=== PATIENT | female | born 1985 ===

== ENCOUNTER 2023-07-06 06:16 | Day surgery (SDC) | payer OTHER ==
[2023-07-06] MEDS ORDERED: CEFTRIAXONE SODIUM 2,000 MG VIAL ONE (09:55)
[2023-07-06] MEDS ORDERED: ENOXAPARIN SODIUM 40 MG/0.4 ML SYRINGE SUBCUTANEO ONE ×2 (09:55→14:15)
[2023-07-06] MEDS ORDERED: METRONIDAZOLE/SODIUM CHLORIDE 500 MG/100 ML PIGGYBACK IV ONE ×2 (10:00→14:15)
[2023-07-06] MEDS ORDERED: SUGAMMADEX SODIUM 200 MG/2 ML VIAL IV ONE ×2 (13:59→14:15)
[2023-07-06] MEDS ORDERED: CEFTRIAXONE SODIUM 2,000 MG VIAL IV ONE (14:15)
[2023-07-06] MEDS ORDERED: PERCOCET 5-3251 EACH PO (15:59)
[2023-07-06] MEDS ORDERED: NEURONTIN300 MG PO (16:05)
[2023-07-06] MEDS ORDERED: CELEBREX200MG PO (16:05)
[2023-07-06] MEDS ORDERED: ONDANSETRON HCL 2 MG/ML VIAL ONE (16:41)
== END 2023-07-06 19:05 | disposition home or self-care (01) ==
LOC: CIR.AMB 06:16 → EDBD 12:30 → CIR.AMB 19:05
PROVIDERS: ATTEND Surgery
DX: K80.10 Calculus of gallbladder with chronic cholecystitis without obstruction (principal)

== ENCOUNTER 2024-09-07 06:55 | Day surgery (SDC) | payer OTHER ==
[2024-08-29 14:50] VITALS: BP 138/88
[2024-08-29 15:41] LABS: HEMATOCRIT 37.1 % (36.0-45.00); HEMOGLOBIN 12.6 g/dL (12.0-15.00); MEAN CELL VOLUME 87.3 fL (80.00-100.00); MEAN CORPUSCULAR HEMOGLOBIN 29.5 pg (27.00-32.0); MEAN CORPUSCULAR HGB CONC 33.8 g/dl (32.0-36.0); PLATELET COUNT 315 K/uL (150-450); RED BLOOD COUNT 4.25 M/uL (4.00-6.00); RED CELL DISTRIBUTION WIDTH 13.6 % (11.5-14.5)
[2024-08-29 15:59] LABS: INR 1.03; PARTIAL THROMBOPLASTIN TIME 32.7 SECONDS (22.0-34.0); PROTHROMBIN TIME 11.2 SECONDS (9.0-11.5)
[2024-08-29 16:07] LABS: ALBUMIN 3.8 gm/dL (3.4-5.0); BILIRUBIN TOTAL 0.37 mg/dL (0.3-1.2); CALCIUM 9.5 mg/dL (8.5-10.1); CREATININE SERUM 0.74 mg/dL (0.55-1.02); GFR 86.49; GLOBULINA 3.5 G/DL (2.4-3.5); POTASSIUM 4.15 mEq/L (3.5-5.1); TOTAL PROTEIN 7.3 gm/dL (6.4-8.2)
[~2024-09-07] VITALS: Ht 165.1 cm; Wt 99.8 kg
[~2024-09-07 06:55] MED LIST: CELEBREX200MG PO; LEVOTHYROXINE25 MCG PO; NEURONTIN300 MG PO; PERCOCET 5-3251 EACH PO
[2024-09-07] MEDS ORDERED: IOVERSOL 320 MG/ML - 50 ML VIAL IV ONE (12:00)
== END 2024-09-07 17:10 | disposition home or self-care (01) ==
LOC: CIR.AMB 06:55
PROVIDERS: ATTEND Internal Medicine
DX: K80.50 Calculus of bile duct without cholangitis or cholecystitis without obstruction (principal); R93.3 Abnormal findings on diagnostic imaging of other parts of digestive tract